=== PATIENT | male | born 1985 | race Caucasian/White ===

== ENCOUNTER 2020-09-29 23:19 | Emergency (ER) | payer OTHER ==
[2020-09-30] MEDS ORDERED: DOXYCYCLINE MO100 MG PO (01:28)
== END 2020-09-30 01:41 | disposition home or self-care (01) ==
LOC: ER1 23:19
DX: S60.562A Insect bite (nonvenomous) of left hand, initial encounter (principal); S60.561A Insect bite (nonvenomous) of right hand, initial encounter; S90.862A Insect bite (nonvenomous), left foot, initial encounter; S90.861A Insect bite (nonvenomous), right foot, initial encounter; W57.XXXA Bitten or stung by nonvenomous insect and other nonvenomous arthropods, initial encounter
CPT/HCPCS: 99281